=== PATIENT | male | born 1990 | race African-American/Black ===

== ENCOUNTER 2024-07-01 04:39 | Emergency (ER) | payer SELFPAY ==
[~2024-07-01] VITALS: Ht 175.3 cm; Wt 69.0 kg
[2024-07-01 04:44] VITALS: O2SAT 98
[2024-07-01 05:06] VITALS: BP 136/64; TEMP 98.1; O2SAT 99
[2024-07-01] MEDS: PREDNISONE 20MG TABLET PO STA (05:50)
[2024-07-01 06:04] LABS: BASOPHILS % 0.2 % (0.0-2.0); EOSINOPHILS % 0.4 % (0.0-5.0); HEMATOCRIT. 40.2 % (42.0-52.0); HEMOGLOBIN. 13.9 g/dL (14.0-18.0); LYMPHOCYTES % 9.5 % (20.0-50.0); MEAN CORPUSCULAR HEMOGLOBIN 32.4 pg (28.0-32.0); MEAN CORPUSCULAR HGB CONC 34.6 g/dL (31.0-37.0); MEAN CORPUSCULAR VOLUME 93.8 fL (80.0-94.0); MEAN PLATELET VOLUME 8.6 fl (7.4-10.4); NEUTROPHILS % 79.9 % (40.0-76.0); PLATELET 196 x1000/uL (130-400); RED BLOOD CELL COUNT 4.28 mill/uL (4.7-6.1); RED CELL DISTRIBUTION WIDTH 12.5 % (11.6-14.6); WHITE BLOOD COUNT 7.6 x1000/uL (4.5-11.0)
[2024-07-01 06:11] LABS: CARBON DIOXIDE 28 mEq/L (21-32); CHLORIDE 103 mEq/L (98-107); POTASSIUM 4.2 mEq/L (3.5-5.1); SODIUM 138 mEq/L (136-145)
[2024-07-01 06:12] LABS: CALCIUM 9.9 mg/dL (8.7-10.4)
[2024-07-01 06:17] LABS: CREATININE 1.3 mg/dL (0.6-1.3); GLUCOSE 108 mg/dL (70-105); UREA NITROGEN BLOOD 13 mg/dL (9-23)
[2024-07-01 06:20] VITALS: PULSE 71; RESP 18
[2024-07-01] MEDS: ALBUTEROL (0.083%) 2.5MG/3ML NEB HHN STA (06:20)
[2024-07-01] MEDS: IPRATROPIUM BROMIDE (0.02%) 0.5MG/2.5ML NEB HHN STA (06:20)
[2024-07-01 06:22] LABS: TROPONIN I HIGH SENSITIVITY < 4 ng/L (3.0-53)
[2024-07-01] MEDS ORDERED: P50 PO (07:26)
[2024-07-01] MEDS ORDERED: ALBU18HF2 IH (07:26)
== END 2024-07-01 07:40 | disposition home or self-care (01) ==
LOC: ER 04:39
DX: J45.901 Unspecified asthma with (acute) exacerbation (principal)
CPT/HCPCS: 80048; 85025; 84484; 36415; 71045; 94640; 93005; 99285; Z7610